=== PATIENT | female | born 1930 | race Caucasian/White ===

== ENCOUNTER 2016-12-15 16:52 | Emergency (ER) | payer MEDICARE, OTHER ==
--- NOTE | 2016-12-18 16:28 | ER ---
ADMIT: 12/15/2016 RM/LOC: ER [facility] MR#: [id number] [address] [id number] [address] [address] Emergency Room Report SEX: F AGE: 86 : 1930 DATE: 12/15/2016 ADDENDUM: CHIEF COMPLAINT: Weakness. HISTORY OF PRESENT ILLNESS: This is an 86-year-old female, who said she just feeling weak today. She felt like she was going to pass out, little bit shaky, and dizzy. She does have a history of having diabetes. She did check her blood sugars and it was 83 at the time of checking it. COURSE IN THE EMERGENCY ROOM: EKG showed sinus rhythm at a rate 82, over-read by Dr. Marshall. Lactic acid was 2.3. CBC was normal. CMP is normal except for a BUN of 35, glucose is 66, creatinine of 2.1. GFR is 21. Her troponin is normal. I did speak with Dr. Kaba regarding this patient. She feels significantly better after receiving a liter of fluids. Feels okay to go home. After talking to Dr. Kaba, we are going to hold her Lasix and hold her enalapril for 2 days and then follow up with Dr. Kaba on . CLINICAL IMPRESSION: Dehydration. JANIA Mcnair / Yaron Marshall MD / modl JOB #: [id number] CC: Yaron Marshall MD, Attending Physician UNKNOWN, Family Physician
== END 2016-12-15 19:35 | disposition home or self-care (01) ==
LOC: ER 16:52
DX: E86.0 Dehydration (principal); I10 Essential (primary) hypertension; E11.9 Type 2 diabetes mellitus without complications; Z95.5 Presence of coronary angioplasty implant and graft; Z98.890 Other specified postprocedural states; Z87.891 Personal history of nicotine dependence; Z79.84 Long term (current) use of oral hypoglycemic drugs; Z79.82 Long term (current) use of aspirin; Z79.899 Other long term (current) drug therapy